=== PATIENT | female | born 1930 | race Caucasian/White ===

== ENCOUNTER → 2019-01-13 | Outpatient (CLI) | payer MEDICARE, OTHER ==
[~2019-01-13] MED LIST: ADVIL PM; ARTTEAOPSB OP; ASPI325 PO; ASPI325EC PO; ASPI81EC PO; ATOR20 PO; BIOTIN PO; BISA10S PR; CALCIUM/MAG/ZINC PO; CHOL10002 PO; CHONDROITIN PO; CIPR500 PO; CLOP75 PO; COLLAGEN PO; CONEST.3 PO; CONEST.625 PO; CONESTTC PV; CYAN1000 PO; DICL.1SO OD; DIPH50 PO; DOC250 PO; DOCU100 PO; FISH1000 PO; GLUCHON PO; GLUCOSAMINE LIQUID PO; IRBE75 PO; LOSA25 PO; METHYLSULFONYLMETHANE PO; METO25ER PO; METO50 PO; METOPROLOL TART PO; METPRE4DP PO; MIRALAX17 GM PO; MIRT15 PO; MULVITA PO; MULVITMIND PO; MULVITMINF PO; Mirtazapine7.5 MG PO; OFLO.3OPSO OP; OMEPRAZOLE MAGN20 MG PO; OXYC5 PO; PSYL5.85P PO; RANI150 PO; SIMV10 PO; SIMV40 PO; [UNRECOGNIZED DRUG - OTHER] OU
[2019-01-16 22:07] LABS: DOPAMINE, URINE 110 ug/L (Undefined)
== END | disposition home or self-care (01) ==
LOC: LAB 06:30 → LAB SHORT 06:30
PROVIDERS: Urology
DX: E27.8 Other specified disorders of adrenal gland (principal)
CPT/HCPCS: 81050

== ENCOUNTER → 2019-05-15 | Outpatient (CLI) | payer MEDICARE, OTHER ==
[~2019-05-15] MED LIST changes: +BIOTIN5000 MC1 SL; +DIAZ5 PO; +FURO40 PO; +MELO7.5 PO; +OMEGA 3 500 SO1 EACH PO; +POTA10T PO; +Vitamin D2000 UNIT PO; +Zocor20 MG PO
[2019-05-15 15:30] LABS: BASOPHILS ABSOLUTE AUTO 0.02 K/mm3 (0.00-0.23); BASOPHILS PERCENT AUTO 0 % (0-2); EOSINOPHILS ABSOLUTE AUTO 0.02 K/mm3 (0.00-0.68); EOSINOPHILS PERCENT AUTO 0 % (0-6); Hematocrit 38.7 % (33.0-51.0); Hemoglobin 13.1 g/dL (11.5-16.0); IMMATURE GRAN ABSOLUTE AUTO 0.07 K/mm3 (0.00-0.10); IMMATURE GRAN PERCENT AUTO 1 % (0-1); LYMPHOCYTES PERCENT AUTO 11 % (21-46); MONOCYTES ABSOLUTE AUTO 0.69 K/mm3 (0.16-1.47); MONOCYTES PERCENT AUTO 11 % (4-13); Mean Corpuscular HGB 34.2 pg (26.0-34.0); Mean Corpuscular HGB Conc 33.9 g/dL (31.5-36.5); Mean Corpuscular Volume 101 fL (80-100); Mean Platelet Volume 11.9 fL (9.1-12.4); NEUTROPHILS ABSOLUTE AUTO 4.91 K/mm3 (1.96-9.15); NEUTROPHILS PERCENT AUTO 77 % (41-73); Platelet Count 210 K/mm3 (150-400); RDW Standard Deviation 51.9 fL (35.1-46.3); Red Blood Cell Count 3.83 M/mm3 (3.80-5.20); White Blood Cell Count 6.41 K/mm3 (4.00-11.30)
[2019-05-15 15:47] LABS: Albumin, Blood 2.9 g/dL (3.4-5.0); Albumin/Globulin Ratio 0.7 (0.8-1.8); Bilirubin, Total 0.5 mg/dL (0.1-1.0); Bun/Creatinine Ratio 18.2 (12.0-20.0); Calcium, Blood 8.9 mg/dL (8.5-10.1); Creatinine, Blood 1.21 mg/dL (0.40-1.00); Globulin, Blood 4.4 g/dL (2.2-4.0); Potassium, Blood 4.5 mmol/L (3.5-5.5); Total Protein, Blood 7.3 g/dL (6.4-8.2)
== END | disposition home or self-care (01) ==
LOC: LAB EV 15:24 → LAB SHORT 15:24
PROVIDERS: Physician Assistant
DX: R06.02 Shortness of breath (principal)
CPT/HCPCS: 80053; 83880; 85025

== ENCOUNTER 2019-05-31 08:43 | Day surgery (SDC) | payer MEDICARE, OTHER ==
[~2019-05-31 08:43] MED LIST changes: -BIOTIN5000 MC1 SL; -DIAZ5 PO; -FURO40 PO; -MELO7.5 PO; -OMEGA 3 500 SO1 EACH PO; -POTA10T PO; -Vitamin D2000 UNIT PO; -Zocor20 MG PO
== END 2019-05-31 23:48 | disposition home or self-care (01) ==
LOC: US 08:43
DX: C78.7 Secondary malignant neoplasm of liver and intrahepatic bile duct (principal); C64.9 Malignant neoplasm of unspecified kidney, except renal pelvis; G47.09 Other insomnia; E78.5 Hyperlipidemia, unspecified; D64.9 Anemia, unspecified; I10 Essential (primary) hypertension; Z88.5 Allergy status to narcotic agent; Z88.6 Allergy status to analgesic agent
CPT/HCPCS: 47000; 76942; 88307; 88341; 88342

== ENCOUNTER 2019-06-04 15:58 | Emergency (ER) | payer MEDICARE, OTHER ==
[~2019-06-04] VITALS: Ht 160 cm; Wt 52.2 kg
[2019-06-04 16:53] LABS: BASOPHILS ABSOLUTE AUTO 0.04 K/mm3 (0.00-0.23); BASOPHILS PERCENT AUTO 1 % (0-2); EOSINOPHILS ABSOLUTE AUTO 0.02 K/mm3 (0.00-0.68); EOSINOPHILS PERCENT AUTO 0 % (0-6); Hematocrit 38.5 % (33.0-51.0); Hemoglobin 13.2 g/dL (11.5-16.0); IMMATURE GRAN ABSOLUTE AUTO 0.09 K/mm3 (0.00-0.10); IMMATURE GRAN PERCENT AUTO 1 % (0-1); LYMPHOCYTES ABSOLUTE AUTO 0.48 K/mm3 (0.84-5.20); LYMPHOCYTES PERCENT AUTO 8 % (21-46); MONOCYTES ABSOLUTE AUTO 0.44 K/mm3 (0.16-1.47); MONOCYTES PERCENT AUTO 7 % (4-13); Mean Corpuscular HGB 34.4 pg (26.0-34.0); Mean Corpuscular HGB Conc 34.3 g/dL (31.5-36.5); Mean Corpuscular Volume 100 fL (80-100); Mean Platelet Volume 12.7 fL (9.1-12.4); NEUTROPHILS ABSOLUTE AUTO 5.25 K/mm3 (1.96-9.15); NEUTROPHILS PERCENT AUTO 83 % (41-73); Platelet Count 214 K/mm3 (150-400); RDW Coefficient Variation 17.4 % (11.7-14.2); RDW Standard Deviation 62.2 fL (35.1-46.3); Red Blood Cell Count 3.84 M/mm3 (3.80-5.20); White Blood Cell Count 6.32 K/mm3 (4.00-11.30)
[2019-06-04 17:10] LABS: Alanine Aminotransfer (ALT/SGP 80 U/L (12-78); Albumin, Blood 1.8 g/dL (3.4-5.0); Albumin/Globulin Ratio 0.4 (0.8-1.8); Alk Phos 297 U/L (50-136); Anion Gap 9 mmol/L (6-16); Aspartate Aminotrans (AST/SGOT 84 U/L (12-37); Bilirubin, Total 2.6 mg/dL (0.1-1.0); Blood Urea Nitrogen 31 mg/dL (8-24); CO2, Blood 24 mmol/L (21-32); Calcium, Blood 9.4 mg/dL (8.5-10.1); Chloride, Blood 103 mmol/L (98-108); Creatinine, Blood 1.24 mg/dL (0.40-1.00); Globulin, Blood 4.8 g/dL (2.2-4.0); Glomerular Filtration Rate 43 (60-); Glucose, Blood 80 mg/dL (70-99); Potassium, Blood 4.5 mmol/L (3.5-5.5); Sodium, Blood 136 mmol/L (136-145); Total Protein, Blood 6.6 g/dL (6.4-8.2); Troponin I <0.015 ng/mL (0.000-0.040)
[2019-06-04 17:28] LABS: Source, Urine Voided
[2019-06-04 17:32] LABS: Base Excess Venous 2.5 mmol/L; Bicarbonate Venous 24.8 mmol/L (24.0-30.0); PCO2 Venous 53.9 mmHg (38-42); PO2 Venous 37.4 mmHg (38-42); pH Blood Venous 7.33 (7.34-7.37)
[2019-06-04 17:38] LABS: Blood, Urine 1+ (Neg); Glucose Qualitative, Urine Neg (Neg); Ketones, Urine Neg (Neg); Leukocyte Esterase, Urine 1+ (Neg); Nitrite, Urine Neg (Neg); Protein, Urine 2+ (Neg); Urobilinogen, Urine 3+ (Normal)
[2019-06-04 17:49] LABS: Appearance, Urine Hazy (Clear); Bilirubin, Urine 2+ (Neg); Color, Urine Yellow (P-Yellow)
[2019-06-04 17:51] LABS: Bacteria Many /hpf; Granular Casts 0-2 /lpf (0); Mucus Light (0-Heavy); Red Blood Cells, Urine 0-2 /hpf (0-2); Squamous Epithelial Cells Few /hpf (Few)
[2019-06-04] MEDS ORDERED: FURO40 PO (18:22)
[2019-06-04] MEDS ORDERED: IRBE75 PO (18:23)
[2019-06-04] MEDS ORDERED: MELO7.5 PO (18:23)
[2019-06-04] MEDS ORDERED: METO25ER PO (18:24)
[2019-06-04] MEDS ORDERED: Vitamin D2000 UNIT PO (18:25)
[2019-06-04] MEDS ORDERED: POTA10T PO (18:25)
[2019-06-04] MEDS ORDERED: DIAZ5 PO (18:25)
[2019-06-04] MEDS ORDERED: Zocor20 MG PO (18:25)
== END 2019-06-04 21:55 | disposition home or self-care (01) ==
LOC: ER 15:58
PROVIDERS: Emergency Medicine
DX: R53.1 Weakness (principal); C74.90 Malignant neoplasm of unspecified part of unspecified adrenal gland; C78.7 Secondary malignant neoplasm of liver and intrahepatic bile duct; R79.89 Other specified abnormal findings of blood chemistry; Z88.5 Allergy status to narcotic agent; Z88.8 Allergy status to other drugs, medicaments and biological substances; Z79.899 Other long term (current) drug therapy; Z79.82 Long term (current) use of aspirin; I10 Essential (primary) hypertension; Z86.73 Personal history of transient ischemic attack (TIA), and cerebral infarction without residual deficits
CPT/HCPCS: 36415; 71046; 71260; 76705; 80053; 81001; 82803; 83690; 83880; 84443; 84484; 85025; 93005; 93010; 96374-59; 99285-25; A9270; J2405; Q9967

== ENCOUNTER 2019-06-08 05:04 | Inpatient (IN) | payer MEDICARE, OTHER ==
[~2019-06-08] VITALS: Ht 160 cm; Wt 59.4 kg
[~2019-06-08 05:04] MED LIST changes: +DIAZ5 PO; +FURO40 PO; +MELO7.5 PO; +POTA10T PO; +Vitamin D2000 UNIT PO; +Zocor20 MG PO
[2019-06-08 05:20] LABS: Calcium, Ionized (POC) 0.89 mmol/L (1.10-1.46); Chloride (POC) 102 mmol/L (98-108); Creatinine (POC) 2.4 mg/dL (0.6-1.0); Glucose (ISTAT POC) 62 mg/dL (70-99); Hemoglobin (POC) 14.6 g/dL (12.0-16.0); Potassium (POC) 4.6 mmol/L (3.5-5.5); Sodium (POC) 135 mmol/L (135-148); Total CO2 (POC) 18 mmol/L (21-32)
[2019-06-08 05:23] LABS: BASOPHILS ABSOLUTE AUTO 0.03 K/mm3 (0.00-0.23); BASOPHILS PERCENT AUTO 0 % (0-2); EOSINOPHILS PERCENT AUTO 0 % (0-6); Hematocrit 39.5 % (33.0-51.0); Hemoglobin 13.9 g/dL (11.5-16.0); IMMATURE GRAN ABSOLUTE AUTO 0.22 K/mm3 (0.00-0.10); IMMATURE GRAN PERCENT AUTO 2 % (0-1); LYMPHOCYTES ABSOLUTE AUTO 0.42 K/mm3 (0.84-5.20); LYMPHOCYTES PERCENT AUTO 4 % (21-46); MONOCYTES ABSOLUTE AUTO 0.77 K/mm3 (0.16-1.47); MONOCYTES PERCENT AUTO 7 % (4-13); Mean Corpuscular HGB 34.2 pg (26.0-34.0); Mean Corpuscular HGB Conc 35.2 g/dL (31.5-36.5); Mean Platelet Volume 12.2 fL (9.1-12.4); NEUTROPHILS ABSOLUTE AUTO 9.52 K/mm3 (1.96-9.15); NEUTROPHILS PERCENT AUTO 87 % (41-73); NRBC ABSOLUTE 0.02 K/mm3 (0.00-0.02); NRBC Auto 0.2 /100 WBC (0.0-0.2); Platelet Count 271 K/mm3 (150-400); RDW Coefficient Variation 18.5 % (11.7-14.2); Red Blood Cell Count 4.06 M/mm3 (3.80-5.20); White Blood Cell Count 10.96 K/mm3 (4.00-11.30)
[2019-06-08 05:40] LABS: Mean Corpuscular Volume 97 fL (80-100)
[2019-06-08 05:41] LABS: International Normalized Ratio 1.22; Prothrombin Time Results 12.7 Sec (9.7-11.5)
[2019-06-08 05:47] LABS: Albumin, Blood 1.5 g/dL (3.4-5.0); Albumin/Globulin Ratio 0.3 (0.8-1.8); Bilirubin, Total 5.6 mg/dL (0.1-1.0); Bun/Creatinine Ratio 23.7 (12.0-20.0); Calcium, Blood 9.6 mg/dL (8.5-10.1); Creatinine, Blood 1.9 mg/dL (0.40-1.00); Potassium, Blood 4.6 mmol/L (3.5-5.5); Total Protein, Blood 6.5 g/dL (6.4-8.2)
--- NOTE | 2019-06-08 07:40 | NUR ---
PATIENT ARRIVED TO UNIT FROM ER AT 0728. TRANSFERRED TO BED WITHOUT INCIDENT. EXHIBITS HEAD TURNED LEFT AND FIXED LEFT UPWARD GAZE, NO RESPONSE TO SPEECH, EYES OPEN, BLINKING, AND NON FOCAL. PUPILS 2 AND SLUGGISH. NO PURPOSEFUL MOVEMENT, VERY SLIGHT RESPONSE WHEN ASKED TO SQUEEZE WITH R HAND. ATTACHED TO MONITOR, VS Q 15 MINUTES. IV'S PATENT; NS BOLUS AND D5W 1/2 NS AT 100 INFUSING. SKIN INTACT, JAUNDICED.
[2019-06-08] MEDS ORDERED: OMEGA 3 500 SO1 EACH PO (10:23)
[2019-06-08] MEDS ORDERED: BIOTIN5000 MC1 SL (10:25)
[2019-06-08] MEDS ORDERED: DOCU100 PO (10:25)
--- NOTE | 2019-06-08 12:42 | NUR ---
pt minimally responsive and non verbal eyes deviated. Met with son to review his needs and understanding of prognosis. He is struggling with contacting his siblings and plan of care. He has access to her funds and has paid her bills he is the executor of her will but no power of tuber operator. he states his sister is in group home and that is an issue. He is hoping his mother will wake up and be able to express herself and get a little more time. He hopes she can see her other children. He is ok with treatment that is limited and may enhance what life she has left and transition to hospice. He understands that we may have to go tocomfort care. We discussed that the goal is to prevent extrodinary suffering and a respectful . He was comforted by expressing his stress. He is hear alone. We discussed our staff will check on her and reassured jose she is getting constant care he went home to rest.
--- NOTE | 2019-06-08 13:23 | NUR ---
pt having a seizure and some change in status son notified. review of plan of care with Dr. Enriquez
--- NOTE | 2019-06-08 13:30 | NUR ---
SHORT SEIZURE: PT FOUND SEIZING BY ANI PALLATIVE CARE RN. HEAD SHAKING SIDE TO SIDE. CONTINUED LT/UPPER GAZE, AND NECK, MUSCLE JERKING SEEN. PT STARTING TO GURGLE ON ORAL SECREATIONS AND SP02 SATS DECREASED TO 88-89%, WHICH REQUIRED INCREASING 02 TO 10L PER OXIMIZER. ADD'L DOSE OF ATIVAN, 1 MG IVP. PT CONTINUING TO SEIZE ON AND OFF, FOR BREIF PERIODS OF TIME. THIS RN AT THE BEDSIDE. JOSE LAW CALLED IN UPDATED PT'S SON, WHOM IS ON HIS WAY.
--- NOTE | 2019-06-08 14:20 | NUR ---
DR. OLSON, ANI ISIDRO PALLIATIVE CARE RN, AND PATEINT'S SON SHANITA AT BEDSIDE. PT IN STATUS EPILEPTICUS. DECISION MADE TO TRANSITION TO COMFORT CARE. NURSING HOME PHYSICIAN NOTIFIED.
--- NOTE | 2019-06-08 14:25 | NUR ---
CONTINUES TO HAVE SEIZURE ACTIVITY. ATIVAN 1 MG NOT EFFECTIVE. STARTED DEPAKOTE IV.
--- NOTE | 2019-06-08 14:35 | NUR ---
patient placed on comfort measures
--- NOTE | 2019-06-08 14:53 | NUR ---
COMFORT CARE: PT IS NOW COMFORT CARE STATUS. 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 PT MEDICATED WITH ATIVAN IV AND ROXINOL. THE COMBINATION OF THESE TWO MEDS HAVE STOPPED THE SEIZURES AND THE PT APPEARS MORE COMFORTABLE. PT'S SON AT THE BEDSIDE AND EXPLAINED ALL MEDICATIONS AND PLAN OF CARE WITH HIM.
[2019-06-08 15:02] LABS: Bun/Creatinine Ratio 24.3 (12.0-20.0); Calcium, Blood 8.7 mg/dL (8.5-10.1); Creatinine, Blood 2.1 mg/dL (0.40-1.00); Potassium, Blood 3.6 mmol/L (3.5-5.5)
--- NOTE | 2019-06-08 17:03 | NUR ---
INCREASED PERIODS OF APNEA, MARY KATE KHANNA RESPIRATIONS. HR 110'S.
--- NOTE | 2019-06-08 17:19 | NUR ---
CALLED [facility] TISSUE DONATION LINE FOR FINAL DISCHARGE.
--- NOTE | 2019-06-08 18:35 | NUR ---
SHIFT SUMMARY: PATIENT ADMITTED WITH SEIZURES, HAS BEEN NON RESPONSIVE. IS NOW COMFORT CARE. WEARING ATTENDS. SKIN IS JAUNDICED. BREATHING IS TACHYPNEIC AND SHALLOW. MEDICATED FOR PAIN AND SEIZURES PER EMAR. SON SHANITA, WHO IS VISITING FROM [place], [place], IS AT BEDSIDE.
--- NOTE | 2019-06-08 23:45 | NUR ---
END OF LIFE PT. PRONOUNCED BY 2 RN'S AT 22:42 ON JUNE 08, 2019. PT. SON WAS AT BEDSIDE. APPROPRIATE CALLS WERE MADE, SOCIAL WORK COORDINATOR NOTIFIED AND CLEARED FOR D/C, WILL BE PICKED UP FROM [facility] IN [place]. IT HAS BEEN A PLEASURE TAKING CARE OF THIS PATIENT.
== END 2019-06-08 22:42 | DRG 56 ==
LOC: ER 05:04 → ICUW 05:05 → ER 07:19 → ICUW 07:19
PROVIDERS: Emergency Medicine; ADMIT Family Medicine
DX: I69.398 Other sequelae of cerebral infarction (principal); R40.2312 Coma scale, best motor response, none, at arrival to emergency department; R40.2112 Coma scale, eyes open, never, at arrival to emergency department; R40.2212 Coma scale, best verbal response, none, at arrival to emergency department; C74.90 Malignant neoplasm of unspecified part of unspecified adrenal gland; C78.7 Secondary malignant neoplasm of liver and intrahepatic bile duct; C79.89 Secondary malignant neoplasm of other specified sites; C34.90 Malignant neoplasm of unspecified part of unspecified bronchus or lung; N17.9 Acute kidney failure, unspecified; Z51.5 Encounter for palliative care; G40.901 Epilepsy, unspecified, not intractable, with status epilepticus; I10 Essential (primary) hypertension; Z96.642 Presence of left artificial hip joint; Z79.82 Long term (current) use of aspirin; E78.5 Hyperlipidemia, unspecified; G47.00 Insomnia, unspecified; I73.9 Peripheral vascular disease, unspecified; Z66 Do not resuscitate; E83.51 Hypocalcemia; F41.9 Anxiety disorder, unspecified; I67.1 Cerebral aneurysm, nonruptured; E16.2 Hypoglycemia, unspecified
CPT/HCPCS: 36415; 70450; 80047; 80048; 80053; 82947; 83735; 85014; 85025; 85610; 93005; 93010; 96361; 96365; 96375; 99285-25; J0610; J1644; J1720; J1953; J2060; J7030; J7042; J7799